=== PATIENT | male | born 1955 | race Caucasian/White ===

== ENCOUNTER 2017-12-16 16:53 | Inpatient (IN) | payer MEDICARE, MEDICAID ==
[~2017-12-16] VITALS: Ht 175.2 cm; Wt 58.3 kg
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
--- NOTE | ~2017-12-16 | PR ---
[place], [place] PROGRESS NOTE NAME: RAVI IBARRA UNIT #: [id number] ROOM: 315 DOCTOR: GEORGES HOLT MD BIRTHDATE: [birth year] DOS: 12/19/2017 CHIEF COMPLAINT: "I want to go home, I want to go home soon." SUMMARY OF THE VISIT: The patient was interviewed in the dining area. He was pacing wildly around. He was yelling at times. He did redirect when the nurse's aide did redirect him. When he approached me, I very calmly told him that today was Thursday, tomorrow was Thursday and that in all likelihood if he pulled it together we would be able to return him home on Thursday. I reiterated this many times. He later grabbed my hand and put 3 fingers up and stated 3 days and I am home. He did seem to respond to this. However, he continues to exhibit mood lability, as after I left and sat down to dictate notes, he was once again yelling in the dining area. He is anxious as well as irritable. He is tolerating the current medication regimen well and I see no sedation, somnolence, extrapyramidal symptoms or tardive dyskinesia. MENTAL STATUS: He is alert and oriented. Mood does still seem to be labile. He is very terse and short and very irritable. There are no auditory or visual hallucinations. No delusions. Short term memory has gaps. PLAN: I will discontinue Ativan in lieu of Klonopin 1 mg t.i.d. as a longer acting ____ to calm him more consistently. I will increase his Vraylar to its maximum dose of 6 mg at bedtime. I will check a valproic acid level in the a.m. to ensure that it is therapeutic. We will continue to engage in individual and diane milieu activity with the plan to return to the least restrictive environment when psychiatrically stable. GEORGES HOLT MD CM:PNTRANS [id number] GEORGES HOLT MD 12/19/17 0909 interface
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
[2017-12-16] MEDS ORDERED: NEXIUM40 MG PO (17:21)
[2017-12-16] MEDS ORDERED: CELEXA20 MG PO (17:22)
[2017-12-16] MEDS ORDERED: VITAMIN D-32000 UNIT PO (17:23)
[2017-12-17 00:01] VITALS: BP 106/82
[2017-12-17 06:29] LABS: BASO # 0.1 10*3/uL (0.0-0.1); BASO % 1.1 % (0.0-1.0); EOS # 0.2 10*3/uL (0.0-0.4); EOS % 2.8 % (1.0-4.0); HEMATOCRIT 41.1 % (42.0-52.0); HEMOGLOBIN 13.8 g/dl (14.0-18.0); LYMPH # 2.3 10*3/uL (1.3-4.4); LYMPH % 41.9 % (27.0-41.0); MEAN CELL VOLUME 89.9 fl (80.0-94.0); MEAN CORPUSCULAR HGB 30.2 pg (27.0-31.0); MEAN CORPUSCULAR HGB CONC 33.6 g/dl (33.0-37.0); MEAN PLATELET VOLUME 10.5 fl (9.6-12.3); MONO # 0.5 10*3/uL (0.1-1.0); MONO % 8.9 % (3.0-9.0); NEUT # 2.5 10*3/uL (2.3-7.9); NEUT % 45.3 % (47.0-73.0); PLATELET COUNT AUTOMATED 162 10*3/uL (130-400); RED BLOOD COUNT 4.57 10*6/uL (4.50-5.90); RED CELL DISTRI WIDTH 13.1 % (0-14.5); WHITE BLOOD COUNT 5.4 10*3/uL (4.8-10.8)
[2017-12-17 06:48] LABS: ALBUMIN 3.3 gm/dl (3.1-4.5); ALKALINE PHOSPHATASE 88 U/L (45-117); BUN 19 mg/dl (7-24); CHLORIDE 106 mmol/L (98-107); CHOLESTEROL 192 mg/dL (<200); HDL CHOLESTEROL 72 mg/dl (40-60); LDL CHOLESTEROL 105 mg/dL (9-159); POTASSIUM 3.8 mmol/L (3.5-5.1); SGOT/AST 17 IU/L (3-35); SGPT/ALT 17 U/L (12-78); SODIUM 141 mmol/L (136-145); TOTAL PROTEIN 6.5 gm/dL (6.4-8.2); TRIGLYCERIDES 74 mg/dl (<150); VLDL CHOLESTEROL 15 mg/dL (6-40)
[2017-12-17 07:41] LABS: VITAMIN D, 25-HYDROXY 32.9 ng/mL (30-100)
[2017-12-17 08:00] VITALS: BP 106/82
[2017-12-17 19:57] VITALS: BP 108/80
[2017-12-18 07:36] VITALS: BP 102/65
[2017-12-18 10:53] LABS: BILIRUBIN NEGATIVE (NEGATIVE); BLOOD NEGATIVE (NEGATIVE); CLARITY CLEAR (CLEAR); COLOR YELLOW (YELLOW); GLUCOSE NEGATIVE (NEGATIVE); KETONE TRACE (NEGATIVE); LEUKO ESTERASE NEGATIVE (NEGATIVE); NITRITE NEGATIVE (NEGATIVE); PH 5.5 (5.0-9.0); SPECIFIC GRAVITY 1.025 (1.005-1.030); UROBILINOGEN 0.2 E.U./dl (0.2-1.0)
[2017-12-18 12:17] LABS: BACTERIA TRACE; WBC 0-2 wbc/hpf (0-5)
[2017-12-18 20:00] VITALS: BP 103/66
[2017-12-19 07:53] VITALS: BP 115/72
[2017-12-20 08:10] VITALS: BP 119/71
[2017-12-20 16:22] VITALS: BP 109/60
[2017-12-20 20:34] VITALS: BP 107/70
[2017-12-21 07:46] VITALS: BP 110/72
[2017-12-21] MEDS ORDERED: MIRTAZAPINE15 M2 PO (09:43)
[2017-12-21] MEDS ORDERED: THORAZINE25 MG PO (09:43)
[2017-12-21] MEDS ORDERED: DIPHENHYDRAMINE25 M2 PO (09:43)
[2017-12-21] MEDS ORDERED: VRAYLAR6 MG PO (09:43)
[2017-12-21] MEDS ORDERED: LORAZEPAM2 MG PO (09:44)
[2017-12-21 20:00] VITALS: BP 103/81
[2017-12-22 07:39] VITALS: BP 125/76
== END 2017-12-22 18:00 | DRG 883 ==
LOC: 3N 16:53
PROVIDERS: Psychiatry & Neurology Psychiatry
DX: F63.81 Intermittent explosive disorder (principal); I48.2 Chronic atrial fibrillation; R45.851 Suicidal ideations; F70 Mild intellectual disabilities; F31.60 Bipolar disorder, current episode mixed, unspecified; K21.9 Gastro-esophageal reflux disease without esophagitis; F31.9 Bipolar disorder, unspecified; F17.200 Nicotine dependence, unspecified, uncomplicated; F41.9 Anxiety disorder, unspecified; D64.9 Anemia, unspecified; Z88.8 Allergy status to other drugs, medicaments and biological substances